=== PATIENT | female | born 1940 | race Caucasian/White ===

== ENCOUNTER → 2016-03-23 | Outpatient (CLI) | payer OTHER ==
--- NOTE | 2016-03-23 20:10 | MA ---
Screening Digital Mammogram With iCAD Indication: Routine screening. Technique: Standard cephalocaudal and mediolateral oblique projections are obtained. This examinati on was processed with the iCAD computer-aided detection system. Comparison: March 2015, April 2014, March 2014, February 2013, and February 2011 Breast density: Type C. Findings: CAD was reviewed. No suspicious microcalcifications, mass, or architectural distortion. Impression: Negative unchanged mammograms. BI-RADS 1: Negative Recommendation: Routine screening is recommended in one year, as long as physical examination is ludivina gn in this patient with moderately dense breast parenchyma. [facility] will send a result letter to the patient. Negative mammography should not preclude additional workup of a clinically suspicious finding. The patient's information is entered into a reminder system with a target due date for her next mammo gram.
--- NOTE | 2016-03-27 10:43 | DX ---
DEXA Bone Densitometry Technique: DEXA scan was performed on [employer] Discovery W Bone Densitometer Indication: Osteopenia Comparator Study: March 2014 Results: Lumbar Spine BMD: 0.974 T-score: -0.7 Prior BMD: 1.013 % change: -3.8% Total Hip (Right) BMD: 0.685 T-score: -2.1 Prior BMD: 0.699 % Change: -2.1% Femoral Neck (Right) BMD: 0.562 T-score: -2.6 Total Hip (Left) BMD: 0.757 T-score: -1.5 Prior BMD: 0.786 % change: -3.7% Femoral Neck (Left) BMD: 0.643 T-score: -1.9 CONCLUSION: Osteoporosis based on T score less than -2.5 in the femoral neck region In comparison to the prior study from 2014 the patient measured BMD in the lumbar spine has decreas ed by 3.8% which is a significant change. The patient measured BMD in the total hip has not changed s ignificantly. ADDITIONAL COMMENTS: By FRAX calculation the estimated 10 year risk of any osteoporotic fracture is 14 percent. The estima emelina 10 year risk of hip fracture is 4.5%. This patient meets the National Osteopor[employer] guidelines for pharmacologic treatment based on T score less than -2.5 in addition to 10 year hip fracture risk greater than 3% Recommend further treatment to prevent fractures and increase bone mineral density Consider repeating the study in 2 years NOTE: The risk of osteoporotic fractures increases approximately twofold for each 1.0 SD decrease in T-score. The T-score represents the standard deviations from a young normal, same sex, reference po pulation. Low bone density is not the only risk factor for fracture. Clinical factors to consider include fall risk, previous osteoporotic fractures, family history of fractures, smoking, and low body weight. Patients who have an unexpectedly low BMD may need to be evaluated for secondary causes of low bone m ineral density. In comparing the present study to a prior study, lack of a significant increase or decrease in BMD ma y signify efficacy of the patient's present treatment. Bone mineral density measurements performed with densitometers produced by different manufacturers ar e not comparable. For the most reproducible BMD measurement, subsequent exams should be performed on the same densitometer.
== END ==
LOC: BMCIMAGING 14:48
PROVIDERS: ATTEND Internal Medicine
DX: Z12.31 Encounter for screening mammogram for malignant neoplasm of breast (principal); Z13.820 Encounter for screening for osteoporosis; M81.0 Age-related osteoporosis without current pathological fracture
CPT/HCPCS: G0202

== ENCOUNTER → 2017-03-30 | Outpatient (CLI) | payer OTHER | LOC: BMCIMAGING 13:22 | PROVIDERS: ATTEND Internal Medicine | DX: Z12.31 Encounter for screening mammogram for malignant neoplasm of breast (principal) ==

== ENCOUNTER → 2018-06-15 | Outpatient (CLI) | payer OTHER | LOC: BMCIMAGING 08:32 → EDSTATUS 08:32 | PROVIDERS: ATTEND Podiatrist Foot & Ankle Surgery | DX: M20.11 Hallux valgus (acquired), right foot (principal); M19.071 Primary osteoarthritis, right ankle and foot ==